=== PATIENT | female | born 1985 | race Hispanic/Latino ===

== ENCOUNTER 2019-07-06 19:21 | Emergency (ER) | payer OTHER ==
[2019-07-06] MEDS ORDERED: DIPHENHYDRAMINE 50 MG/ML VIAL ONE (21:05)
[2019-07-06] MEDS ORDERED: KETOROLAC 30 MG/ML INJ ONE (21:05)
[2019-07-06] MEDS ORDERED: dexAMETHasone 10 MG/ML VIAL ONE (21:05)
[2019-07-06] MEDS ORDERED: METOCLOPRAMIDE 10 MG/2mL INJ ONE (21:05)
[2019-07-06] MEDS ORDERED: ONDANSETRON 4 MG/2 ML VIAL ONE (21:06)
[2019-07-06] MEDS ORDERED: NA CHLORIDE 0.9% 1,000 ML ONE (21:06)
[2019-07-06 21:07] LABS: Absolute Lymphocytes (CBC) 1.7 K/uL (0.7-4.9); Basophils % 0.4 % (0-1.3); Hematocrit 40.2 % (36.0-45.0); Lymphocytes % 22.2 % (15.3-44.8); MPV 7.9 fL (7.6-11.3)
[2019-07-06 21:22] LABS: Urine Blood NEGATIVE (NEG); Urine Glucose NEGATIVE (NEG); Urine Protein NEGATIVE (NEG); Urine pH 7.5 (5.0-7.0)
[2019-07-06 21:24] LABS: BUN Blood Urea Nitrogen 17 mg/dL (7-18); Bicarbonate 29 mmol/L (21-32); Glucose Level 110 mg/dL (74-106); Magnesium 2.3 mg/dL (1.8-2.4); Potassium 3.7 mmol/L (3.5-5.1); Sodium Level 141 mmol/L (136-145)
--- NOTE | 2019-07-06 22:14 | EDPHYS ---
Physician Documentation [facility] Name: Suzanne Medina Age: 34 yrs Sex: Female : 1985 Arrival Date: 07/06/2019 Time: 19:24 Bed 24 Private MD: ED Physician Macho Sy HPI: 07/06 20:54 This 34 yrs old Female presents to ER via Ambulatory with complaints of Headache, cp Nausea/Vomiting. 20:54 The patient complains of pain to the right side of forehead and right temporal area and cp back of head. Onset: The symptoms/episode began/occurred this morning, at 10:00. Associated signs and symptoms: Pertinent positives: nausea, Photophobia vomiting, Pertinent negatives: altered mental status, fever, neck stiffness, sinus congestion, sinus tenderness, weakness. Severity of symptoms: in the emergency department the pain a " 8" out of "10". Headache History: The patient has had previous headaches and this one is more severe than previous episodes. 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 - Social history:: Smoking status: Patient/guardian denies using tobacco. - Ebola Screening: : Patient denies travel to an Ebola-affected area in the 21 days before illness onset. ROS: 21:00 Constitutional: Negative for body aches, chills, fever, poor PO intake. cp 21:00 Eyes: Negative for injury, pain, redness, and discharge. cp 21:00 ENT: Negative for drainage from ear(s), ear pain, sore throat, difficulty swallowing, difficulty handling secretions. 21:00 Cardiovascular: Negative for chest pain, edema, palpitations. 21:00 Respiratory: Negative for cough, shortness of breath, wheezing. 21:00 Abdomen/GI: Positive for nausea and vomiting, Negative for abdominal pain, diarrhea, constipation, anorexia, hematemesis. 21:00 Back: Negative for pain at rest, pain with movement. 21:00 : Negative for urinary symptoms. 21:00 Skin: Negative for cellulitis, rash. 21:00 Neuro: Positive for headache, Negative for altered mental status, loss of consciousness, syncope, weakness. 21:00 All other systems are negative. Exam: 21:05 Constitutional: The patient appears in no acute distress, alert, awake, non-toxic, well cp developed, well nourished. 21:05 Head/Face: Normocephalic, atraumatic. cp 21:05 Eyes: Pupils equal round and reactive to light, extra-ocular motions intact. Lids and cp lashes normal. Conjunctiva and sclera are non-icteric and not injected. Cornea within normal limits. Periorbital areas with no swelling, redness, or edema. ENT: Nares patent. No nasal discharge, no septal abnormalities noted. Tympanic membranes are normal and external auditory canals are clear. Oropharynx with no redness, swelling, or masses, exudates, or evidence of obstruction, uvula midline. Mucous membranes moist. Neck: Trachea midline, no thyromegaly or masses palpated, and no cervical lymphadenopathy. Supple, full range of motion without nuchal rigidity, or vertebral point tenderness. No Meningismus. Chest/axilla: Normal chest wall appearance and motion. Nontender with no deformity. No lesions are appreciated. Cardiovascular: Regular rate and rhythm with a normal S1 and S2. No gallops, murmurs, or rubs. Normal PMI, no JVD. No pulse deficits. Respiratory: Lungs have equal breath sounds bilaterally, clear to auscultation and percussion. No rales, rhonchi or wheezes noted. No increased work of breathing, no retractions or nasal flaring. Abdomen/GI: Soft, non-tender, with normal bowel sounds. No distension or tympany. No guarding or rebound. No evidence of tenderness throughout. Skin: Warm, dry with normal turgor. Normal color with no rashes, no lesions, and no evidence of cellulitis. Neuro: Awake and alert, GCS 15, oriented to person, place, time, and situation. Cranial nerves II-XII grossly intact. Motor strength 5/5 in all extremities. Sensory grossly intact. Cerebellar exam normal. Normal gait. Vital Signs: 19:29 BP 130 / 75; Pulse 66; Resp 18; Temp 98.2; Pulse Ox 98% on R/A; Weight 76.2 kg (R); aj1 Height 5 ft. 5 in. (165.10 cm) (R); Pain 8/10; 21:35 BP 103 / 67; Pulse 60; Resp 18; Pulse Ox 100% on R/A; mg2 22:32 BP 110 / 78; Pulse 65; Resp 18; Temp 98.5; Pulse Ox 100% on R/A; Pain 0/10; mg2 19:29 Body Mass Index 27.96 (76.20 kg, 165.10 cm) aj1 MDM: 20:13 Patient medically screened. cp 21:00 Differential diagnosis: hyponatremia, intracerebral hemorrhage, meningitis, cp meningoencephalitis, migraine, sinusitis, subarachnoid bleed, tension headache. 22:10 Data reviewed: vital signs, nurses notes, lab test result(s), radiologic studies, CT cp scan. Counseling: I had a detailed discussion with the patient and/or guardian regarding: the historical points, exam findings, and any diagnostic results supporting the discharge/admit diagnosis, lab results, radiology results, the need for outpatient follow up, a neurologist, to return to the emergency department if symptoms worsen or persist or if there are any questions or concerns that arise at home. Response to treatment: the patient's symptoms have markedly improved after treatment, VSS. Patient reports headache and nausea markedly improved, and as a result, I will discharge patient. 07/06 20:52 Order name: CBC with Diff; Complete Time: 21:38 cp 07/06 21:38 Interpretation: Reviewed. cp 07/06 20:52 Order name: BMP; Complete Time: 21:38 cp 07/06 21:38 Interpretation: Normal except: GLUC 110. cp 07/06 20:52 Order name: CT Head Brain wo Cont cp 07/06 20:52 Order name: Magnesium; Complete Time: 21:38 cp 07/06 21:19 Order name: Urine Dipstick--Ancillary (enter results); Complete Time: 21:38 cm6 07/06 21:19 Order name: Urine --Ancillary (enter results); Complete Time: 21:38 cm6 07/06 20:52 Order name: IV; Complete Time: 21:28 cp 07/06 20:52 Order name: Urine Dipstick-Ancillary (obtain specimen); Complete Time: 21:27 cp 07/06 20:52 Order name: Urine Test (obtain specimen); Complete Time: 21:27 cp 07/06 22:10 Order name: PO challenge; Complete Time: 22:30 cp Administered Medications: 21: Drug: NS 0.9% 1000 ml Route: IV; Rate: 1 bolus; Site: right antecubital; mg2 22:32 Follow up: Response: No adverse reaction; IV Status: Completed infusion; IV Intake: mg2 1000ml 21: Drug: Benadryl 25 mg Route: IVP; Site: right antecubital; mg2 22:32 Follow up: Response: No adverse reaction; Marked relief of symptoms mg2 21:27 Drug: Zofran 4 mg Route: IVP; Site: right antecubital; mg2 22:32 Follow up: Response: No adverse reaction; Marked relief of symptoms mg2 21:27 Drug: TORadol 30 mg Route: IVP; Site: right antecubital; mg2 22:31 Follow up: Response: No adverse reaction; Marked relief of symptoms mg2 21:27 Drug: Decadron - Dexamethasone 10 mg Route: IVP; Site: right antecubital; mg2 22:30 Follow up: Response: No adverse reaction; Marked relief of symptoms mg2 21:27 Drug: Reglan 10 mg Route: IVP; Site: right antecubital; mg2 22:30 Follow up: Response: No adverse reaction; Marked relief of symptoms mg2 Disposition: 07/07 03:11 Co-signature as Attending Physician, Macho Sy MD. rn Disposition: 07/06/19 22:11 Discharged to Home. Impression: Headache. - Condition is Stable. - Discharge Instructions: Migraine Headache. - Prescriptions for Fiorinal 50- 325-40 mg Oral Capsule - take 1 capsule by ORAL route every 4 hours As needed - not to exceed 6 capsules per day; 20 capsule. Phenergan 25 mg Rectal Suppository - insert 1 suppository by RECTAL route every 6 hours As needed; 12 suppository. promethazine 25 mg Oral Tablet - take 1 tablet by ORAL route every 6 hours As needed; 20 tablet. - Medication Reconciliation Form, Thank You Letter, Antibiotic Education, Prescription Opioid Use, Work release form form. - Follow up: Yunier Pendleton MD; When: 2 - 3 days; Reason: Recheck today's complaints. - Problem is an acute exacerbation. - Symptoms have improved. Signatures: Dispatcher [employer] EDMS Wm, Sully, RN RN aj1 Macho Sy MD MD rn Page, Corey, PA PA cp Aníbal Cruz RN RN mg2 Corrections: (The following items were deleted from the chart) 07/06 22:33 22:11 07/06/2019 22:11 Discharged to Home. Impression: Headache. Condition is Stable. mg2 Forms are Medication Reconciliation Form, Thank You Letter, Antibiotic Education, Prescription Opioid Use. Follow up: Yunier Pendleton; When: 2 - 3 days; Reason: Recheck today's complaints. Problem is an acute exacerbation. Symptoms have improved. cp
--- NOTE | 2019-07-06 22:14 | ER ---
Nurse's Notes [facility] Name: Suzanne Medina Age: 34 yrs Sex: Female : 1985 Arrival Date: 07/06/2019 Time: 19:24 Bed 24 Private MD: Diagnosis: Headache Presentation: 07/06 19:26 Presenting complaint: Mother states: "She suffers from migraines and she got one this aj1 morning that has gotten worse. She took her Rx for migraines and it didn't work. She has been throwing up, and sweating from the pain." Patient reports that the pain feels similar to her previous migraines but is worse than what she typically experiences. Transition of care: patient was not received from another setting of care. Onset of symptoms was July 06, 2019. Risk Assessment: Do you want to hurt yourself or someone else? Patient reports no desire to harm self or others. Initial Sepsis Screen: Does the patient meet any 2 criteria? No. Patient's initial sepsis screen is negative. Does the patient have a suspected source of infection? No. Patient's initial sepsis screen is negative. Care prior to arrival: None. 19:26 Method Of Arrival: Ambulatory [facility] 19:26 Acuity: HOWIE 3 aj1 Triage Assessment: 19:29 Headache History: The patient has had previous headaches and this one is similar to aj1 previous episodes. General: Appears in no apparent distress. uncomfortable, Behavior is calm, cooperative, appropriate for age. Pain: Complains of pain in right frontal area, right side of the back of head, right temporal area and right side of forehead Pain currently is 8 out of 10 on a pain scale. Pain began 10 hours ago Also complains of nausea. Neuro: Level of Consciousness is awake, alert, obeys commands, Oriented to person, place, time, situation, Moves all extremities. Full function Gait is steady, Speech is normal, Facial symmetry appears normal. Cardiovascular: Patient's skin is warm and dry. Respiratory: Airway is patent Respiratory effort is even, unlabored, Respiratory pattern is regular, symmetrical. 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 - Social history:: Smoking status: Patient/guardian denies using tobacco. - Ebola Screening: : Patient denies travel to an Ebola-affected area in the 21 days before illness onset. Screenin:29 Abuse screen: Denies threats or abuse. Denies injuries from another. Nutritional mg2 screening: No deficits noted. Tuberculosis screening: No symptoms or risk factors identified. Fall Risk IV access (20 points). Assessment: 21:28 General: Appears in no apparent distress. comfortable, Behavior is calm, cooperative. mg2 Pain: Complains of pain in right side of forehead and right temporal area Pain does not radiate. Pain currently is 10 out of 10 on a pain scale. Quality of pain is described as aching, Pain began gradually, 1 day ago. Is intermittent. Neuro: Level of Consciousness is awake, alert, obeys commands, Oriented to person, place, time, situation. Neuro: Reports headache in right frontal area, that is the "worst ever". Cardiovascular: Capillary refill < 3 seconds Patient's skin is warm and dry. Respiratory: Airway is patent Respiratory effort is even, unlabored, Respiratory pattern is regular, symmetrical. GI: Reports nausea, vomiting. : Urine is clear. EENT: No signs and/or symptoms were reported regarding the EENT system. Derm: Skin is intact, is healthy with good turgor, Skin is pink, warm \\T\\ dry. normal. Musculoskeletal: Circulation, motion, and sensation intact. Capillary refill < 3 seconds. 22:32 Reassessment: Patient appears in no apparent distress at this time. Patient and/or mg2 family updated on plan of care and expected duration. Pain level reassessed. patient tolerated po challenge. Patient denies pain at this time. Patient states feeling better. Patient states symptoms have improved. Vital Signs: 19:29 BP 130 / 75; Pulse 66; Resp 18; Temp 98.2; Pulse Ox 98% on R/A; Weight 76.2 kg (R); aj1 Height 5 ft. 5 in. (165.10 cm) (R); Pain 8/10; 21:35 BP 103 / 67; Pulse 60; Resp 18; Pulse Ox 100% on R/A; mg2 22:32 BP 110 / 78; Pulse 65; Resp 18; Temp 98.5; Pulse Ox 100% on R/A; Pain 0/10; mg2 19:29 Body Mass Index 27.96 (76.20 kg, 165.10 cm) aj1 ED Course: 19:24 Patient arrived in ED. cl3 19:28 Triage completed. aj1 19:29 Arm band placed on Patient placed in waiting room, Patient notified of wait time. aj1 20:12 Houston Shearer PA is PHCP. cp 20:12 Macho Sy MD is Attending Physician. cp 20:33 Aníbal Cruz, KARLENE is Primary Nurse. mg2 21:08 CT Head Brain wo Cont In Process Unspecified. EDMS 21:15 Inserted saline lock: 20 gauge in right antecubital area, using aseptic technique. mg2 Blood collected. 21:29 Patient has correct armband on for positive identification. Pulse ox on. NIBP on. Door mg2 closed. Warm blanket given. 21:29 No provider procedures requiring assistance completed. mg2 22:11 Yunier Pendleton MD is Referral Physician. cp 22:33 IV discontinued, intact, bleeding controlled, No redness/swelling at site. Pressure mg2 dressing applied. Administered Medications: 21:27 Drug: NS 0.9% 1000 ml Route: IV; Rate: 1 bolus; Site: right antecubital; mg2 22:32 Follow up: Response: No adverse reaction; IV Status: Completed infusion; IV Intake: mg2 1000ml 21:27 Drug: Benadryl 25 mg Route: IVP; Site: right antecubital; mg2 22:32 Follow up: Response: No adverse reaction; Marked relief of symptoms mg2 21:27 Drug: Zofran 4 mg Route: IVP; Site: right antecubital; mg2 22:32 Follow up: Response: No adverse reaction; Marked relief of symptoms mg2 21:27 Drug: TORadol 30 mg Route: IVP; Site: right antecubital; mg2 22:31 Follow up: Response: No adverse reaction; Marked relief of symptoms mg2 21:27 Drug: Decadron - Dexamethasone 10 mg Route: IVP; Site: right antecubital; mg2 22:30 Follow up: Response: No adverse reaction; Marked relief of symptoms mg2 21:27 Drug: Reglan 10 mg Route: IVP; Site: right antecubital; mg2 22:30 Follow up: Response: No adverse reaction; Marked relief of symptoms mg2 Intake: 22:32 IV: 1000ml; Total: 1000ml. mg2 Outcome: 22:11 Discharge ordered by . cp 22:33 Discharged to home ambulatory, with family. mg2 22:33 Condition: stable 22:33 Discharge instructions given to patient, family, Instructed on discharge instructions, follow up and referral plans. medication usage, Demonstrated understanding of instructions, follow-up care, medications, Prescriptions given X 3. 22:33 Patient left the ED. mg2 Signatures: Dispatcher [employer] EDMS Sully Burk RN RN aj1 Houston Shearer PA PA Aníbal Benton RN RN mg2 Sheldon Gallo cl3
[2019-07-06 23:03] VITALS: O2SAT 100
[2019-07-06 23:04] VITALS: BP 110/78; TEMP 98.5
--- NOTE | 2019-07-07 10:01 | RAD REPORT ---
EXAM DESCRIPTION: Head Brain Wo Cont CLINICAL HISTORY: 34 years Female, HEADACHE TECHNIQUE: 5 mm axial images were obtained along with 3 mm reformatted coronal and sagittal images. This exam was performed according to our departmental dose-optimization program, which includes autom ated exposure control, adjustment of the mA and/or kV according to patient size and/or use of iterati ve reconstruction technique. COMPARISON: None. FINDINGS: No acute abnormal extracerebral fluid collections are demonstrated. The cortical sulci, ventricles, and cisterns are within normal limits. There are no areas of altered attenuation identified to suggest acute hemorrhage or infarction. There are grouped calcifications within the right cerebral hemisphere. Etiology uncertain. Underlying mass cannot be excluded. The visualized portions of the paranasal sinuses and mastoid air cells are clear. IMPRESSION: 1. No acute intracranial abnormalities. 2. Grouped calcifications within the right cerebral hemisphere. Associated mass cannot be excluded. Further assessment with nonemergent contrast-enhanced MRI recommended. Electronically signed by: Dong Pittman MD 07/06/2019 9:19 PM YOUTH MANAGER Due to temporary technical issues with the PACS/Fluency reporting system, reports are being signed by the in house radiologist as a courtesy to ensure prompt reporting. The interpreting radiologist is f ully responsible for the content of the report.
--- OUTSIDE RECORDS SUMMARY | 2019-07-11 02:24 | XMS REPORT ---
:1985 Author Organization [employer] Care Team Providers Name Role Phone Haddad, Na Provider Role Unavailable Allergies, Adverse Reactions, Alerts Substance Reaction Event Type N.K.D.A. 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
--- OUTSIDE RECORDS SUMMARY | 2019-07-11 02:24 | XMS REPORT ---
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
--- OUTSIDE RECORDS SUMMARY | 2019-07-11 02:24 | XMS REPORT ---
:1985 [facility] [address] [place] [address] Dr. Shepard [address] [place] [id number] Care Team Providers Name Role Phone Unavailable Unavailable Unavailable Problems This patient has no known problems. Allergies, Adverse Reactions, Alerts This patient has no known allergies or adverse reactions. Medications This patient has no known medications.
== END 2019-07-06 22:33 | disposition home or self-care (01) ==
LOC: ER 19:21
DX: R51 Headache (principal)
CPT/HCPCS: 85025; 80048; 36415; 83735; 81025; 81003; 70450; J2765; J1200; J1100; J7030; J2405; 96361; 96374; 96375; 99284